=== PATIENT | male | born 1955 | race Caucasian/White ===

== ENCOUNTER → 2017-04-07 | Outpatient (CLI) | payer BC ==
[2017-04-07 08:47] LABS: PLATELET COUNT, AUTOMATED 179 K/uL (150-450)
[2017-04-07 09:04] LABS: LDL CHOLESTEROL 166 mg/dl
== END ==
LOC: LAB 08:11
PROVIDERS: ATTEND Nurse Practitioner Family
DX: Z00.00 Encounter for general adult medical examination without abnormal findings (principal); N52.9 Male erectile dysfunction, unspecified
CPT/HCPCS: 36415; 82040; 82247; 82310; 82374; 82435; 82465; 82565; 82947; 83718; 84075; 84132; 84153; 84155; 84295; 84403; 84443; 84450; 84460; 84478; 84520; 85025

== ENCOUNTER 2017-09-13 01:18 | Day surgery (SDC) | payer BC ==
[~2017-09-13] VITALS: Ht 170.2 cm; Wt 74.8 kg
[2017-09-13 06:26] LABS: PLATELET COUNT, AUTOMATED 187 K/uL (150-450)
[2017-09-13] MEDS ORDERED: MIDAZOLAM 2 MG/2 ML VIAL IVP PRN (06:30)
[2017-09-13] MEDS ORDERED: cefTRIAXone(*) 1 GM VIAL 1 GM in NS(*) 0.9% 100 ML ADDVANT BAG 100 ML IVPB ONE (06:30)
[2017-09-13] MEDS ORDERED: FAMOTIDINE 20 MG TAB PO ONE (06:30)
[2017-09-13] MEDS ORDERED: NORMOSOL R SOLN(*) 1000 ML BAG 1,000 ML IV PRN (06:30)
[2017-09-13] MEDS ORDERED: LIDOCAINE/SOD BICARB 8.4% SYR ID ONE (06:30)
[2017-09-13] MEDS ORDERED: GENTAMICIN(*) 80 MG/2 ML VIAL 160 MG in NS(*) 0.9% 100 ML BAG 100 ML IVPB ONE (06:30)
[2017-09-13 06:45] VITALS: BP 134/78
[2017-09-13] MEDS ORDERED: PROPOFOL EMUL(*) 10MG/ML 20 ML 20 ML ONE (07:20)
[2017-09-13] MEDS ORDERED: LIDOCAINE MPF 1% 5 ML VIAL ONE (07:20)
[2017-09-13] MEDS ORDERED: DEXAMETHASONE SOD 4 MG/ML VIAL ONE (07:20)
[2017-09-13] MEDS ORDERED: fentaNYL CITR 100 MCG/2 ML AMP ONE (07:20)
[2017-09-13] MEDS ORDERED: ONDANSETRON 4 MG/2 ML VIAL ONE (07:20)
[2017-09-13] MEDS ORDERED: KETAMINE HCL 200 MG/20 ML MDV ONE (07:29)
[2017-09-13] MEDS ORDERED: GLYCOPYRROLATE 0.2MG/ML 1 ML INJ ONE (07:45)
[2017-09-13] MEDS ORDERED: FAMO20TA28 PO (08:44)
[2017-09-13] MEDS ORDERED: ACET-3017 PO (08:44)
[2017-09-13] MEDS ORDERED: LEVO-85 PO (08:45)
[2017-09-13] MEDS ORDERED: IBUP-1671 PO (08:45)
[2017-09-13 09:15] VITALS: BP 127/88
[2017-09-13 09:17] VITALS: BP 126/103
[2017-09-13 09:18] VITALS: BP 121/84
--- NOTE | 2017-09-13 11:01 | RADIOLOGY IMAGING REPORT ---
FACILITY: [facility] - [place] PATIENT NAME: Martin Zaman : 1955 MR: [id number] V: [id number] EXAM DATE: ORDERING PHYSICIAN: ROSS REN TECHNOLOGIST: Location: [facility] - [place] Patient: Martin Zaman : 1955 Visit/Account:[id number] Date of Sevice: 09/13/2017 Exam type: PROSTATE BIOPSY History: Prostate biopsy Comparison: None. Findings: Prostate biopsy was performed by Dr. Ren. Sonographic assistance was provided. Please see Dr. Nehemiah gan's report for complete details IMPRESSION: 1. As above Report Dictated By: Leisa Eagle MD at 09/13/2017 10:53 AM Report E-Signed By: Leisa Eagle MD at 09/13/2017 10:57 AM WSN:[id number]
--- NOTE | 2017-09-13 14:33 | OPERATIVE REPORT 1 ---
EVENT DATE: September 13, 2017 SURGEON: Khari Rodriguez MD ANESTHESIOLOGIST: Luis Soares MD ANESTHESIA: General PREOPERATIVE DIAGNOSES 1. Elevated prostate specific antigen, etiology ?. 2. Abnormal prostate, etiology ?. POSTOPERATIVE DIAGNOSES 1. Elevated prostate specific antigen, etiology ?. 2. Abnormal prostate, etiology ?. 3. Calculous prostatitis. PROCEDURE PERFORMED 1. Prostate ultrasound. 2. Transrectal biopsies #12. 3. Cystourethroscopy. DESCRIPTION OF PROCEDURE Under general anesthetic, the patient was prepped and draped in the extended lithotomy position. The transrectal probe was admitted into the rectum. The prostate was scanned. Patient had calculous prostatitis, right greater than left, mostly to the right mid and right base. Biopsies were obtained from the base, mid and apical areas of the prostate bilaterally x two for a total of 12 biopsies. At conclusion of the biopsies the ultrasound probe was removed. Digital examination revealed minimal blood in the rectal ampulla. The patient was re-prepped and draped. The 21 panendoscope admitted through the urethra into the bladder. The urethra was normal. The prostate showed trilobar hyperplasia with obstruction. Verumontanum was normal. Minimal inflammation of the prostatic urethra. Bladder showed 4+ trabeculation. Trigone and ureteral orifices were normal. A few clots were evacuated from the bladder. The irrigation was clear at the conclusion of the procedure. Bladder was drained, and the scope was withdrawn. Patient tolerated the procedure satisfactorily and returned to the recovery room in satisfactory condition. INDICATION FOR PROCEDURE This is a 62-year-old white male who presented in April with a complaint of elevated PSA of 4.4. On digital examination, patient had an abnormal-feeling prostate in the right base and left apical lateral area. Options were discussed with the patient at that time. He opted to be followed up. Current PSA is pending. Patient requested evaluation of his prostate for the elevated PSA and the abnormal-feeling digital exam. That has been accomplished. See operative note for details. DISCHARGE INSTRUCTIONS Patient will be ready for discharge home when alert and functional. Force fluids, 2 L per day. Activities are as tolerated. Plan followup Thursday, September 21, 2017. He is to call for an appointment. He is to continue his usual medications. Copy of instructions were given to the patient. Patient was discharged on Levaquin, Pepcid, Pyridium, Motrin and Tylenol #3 therapy. MTDD
== END 2017-09-13 09:15 | disposition home or self-care (01) ==
LOC: OR 01:18
DX: R97.20 Elevated prostate specific antigen [PSA] (principal); N41.9 Inflammatory disease of prostate, unspecified
CPT/HCPCS: 36415; 55700; 76942; 84153; 85025; 88305; J0696; J1100; J1580; J2001; J2250; J2405; J2704; J3010; J3490; J7050; 82310; 82374; 82435; 82565; 82947; 84132; 84295; 84520; 88344